=== PATIENT | female | born 2000 | race Caucasian/White ===

== ENCOUNTER 2024-07-26 12:25 | Emergency (ER) | payer SELFPAY ==
[~2024-07-26] VITALS: Ht 152.4 cm; Wt 72.5 kg
[2024-07-26] MEDS: ACETAMINOPHEN 650 mg PER 20.3 mL UD PO ONE (13:00)
[2024-07-26 14:16] VITALS: BP 122/74; PULSE 101; RESP 17; O2SAT 97
[2024-07-26] MEDS ORDERED: NAPR-957 PO (14:17)
[2024-07-26] MEDS ORDERED: PROM1SOL4 PO (14:17)
[2024-07-26] MEDS ORDERED: AUG875T PO (14:17)
[2024-07-26 14:18] VITALS: TEMP 99.8
--- NOTE | 2024-07-26 14:18 | ED.PDOC ---
Eye-HPI HPI Comments This is a pleasant 23-year-old female with no MHx that presents with a chief complaint of a sore throat, itchy scratchy sore throat, bilateral ear pain for the last three days. Not taking medications at this time No red flags Chief Complaint: Sore Throat Time Seen by MD: 13:31 Primary Care Provider: NONE Reviewed Notes: Nurses Notes, Medications, Allergies Allergies: Coded Allergies: NO KNOWN ALLERGIES (Unverified , 07/26/24) Home Meds Active Scripts Naproxen (Naproxen) 375 Mg Tab, 1 TAB PO BIDPC for 10 Days, #20 TAB 0 Refills Prov:MELANIE MEDEL MANAGER ED 07/26/24 Promethazine-Dm (Promethazine Dm 6.25-15 mg/5Ml) 1 Wen Wen, 5 ML PO TIDP PRN for 10 Days, #150 ML 0 Refills Prov:MELANIE MDEEL MANAGER ED 07/26/24 Amoxicillin & Pot Clavulanate (AUGMENTIN TABLET) 875 Mg Tb, 875 MG PO BID for 7 Days, #14 TAB 0 Refills Prov:MELANIE MEDEL MANAGER ED 07/26/24 Information Source: Patient Mode of Arrival: Ambulatory Past Medical History PAST MEDICAL HISTORY: Denies Surgical History: Denies all surgeries ENVIRONMENTAL REMEDIATION ENGINEER History: No Pertinent ENVIRONMENTAL REMEDIATION ENGINEER History Family History Family History: Reviewed,noncontributory to illness Social History Smoker: Non-Smoker Alcohol: Denies ETOH Use Drugs: Denies Drug Use All Other Systems: Reviewed and Negative (PER HPI) Physical Exam General Appearance: No Apparent Distress, Normal HEENT: Normal ENT Inspection, PERRL/EOMI, Pharyngeal Erythema (Bilateral tonsillar exudate), TMs Normal Neck: Full Range of Motion, Non-Tender, Normal, Normal Inspection Respiratory: Chest Non-Tender, Lungs Clear, No Accessory Muscle Use, No Respiratory Distress, Normal Breath Sounds Cardiovascular: No Edema, No JVD, No Murmur, No Gallop, Normal Peripheral Pulses, Regular Rate/Rhythm Breast Exam: Deferred Gastrointestinal: No Organomegaly, Non Tender, No Pulsatile Mass, Normal Bowel Sounds, Soft Genitalia: Deferred Pelvic: Deferred Rectal: Deferred Extremities: No calf tenderness, Normal capillary refill, Normal inspection, Normal range of motion, Non-tender, No pedal edema Musculoskeletal : Apperance: Normal Neurologic: Alert, knitted cloth examiner II-XII nml as Tested, No Motor Deficits, Normal Affect, Normal Mood, No Sensory Deficits Cerebellar Function: Normal Reflexes: Normal Skin: Dry, Normal Color, Warm Lymphatic: No Adenopathy Was a procedure done? Was a procedure done?: No EENT DIFF Eye: Other Sore Throat: Streptococcal, Viral Pharyngitis, URI X-Ray, Labs, Meds, VS Vital Signs Date Time Temp Pulse Resp B/P (MAP) Pulse Ox O2 Delivery O2 Flow Rate FiO2 07/26/24 14:18 99.8 07/26/24 14:16 99.8 101 16 122/74 (90) 97 99.8 07/26/24 14:16 101 17 97 Room Air 07/26/24 13:00 101.4 07/26/24 12:33 101.1 106 16 118/77 (91) 97 101.1 Current Medications Medications (Trade) Dose Ordered Sig/Robert Route Start Time Stop Time Status Last Admin Acetaminophen (Tylenol Solution Oral) 650 mg ONCE ONCE PO 07/26/24 13:00 07/26/24 13:01 DC 07/26/24 13:00 Dexamethasone Sodium Phosphate (Decadron Injection) 10 mg ONCE ONCE PO 07/26/24 14:30 07/26/24 14:31 DC 07/26/24 14:31 X-Ray, Labs, Meds, VS Comment Exam/test findings consistent with strep throat infection. Prescribed p.o. antibiotics for presentation of symptoms Complete course of antibiotic therapy even if symptoms improve or resolve. There should be no leftover antibiotics as this can lead to antibiotic resistant bacteria and even worse infection. Patient verbalized understanding. Potential side effects discussed with patient including abdominal pain, nausea, diarrhea. Encouraged fluid intake Acetaminophen to reduce pain/fever NSAIDs to reduce pain/fever Nonpharmacological recommendations given Warm salt water gargles Throat lozenges Humidified air Also advised to replace toothbrush after 3 days of antibiotic use, return to school after 24 hours of treatment (no longer contagious). Return precautions given Worsening pain Fevers past 48 hours after antibiotics Any neck pain, headache, vision issues, or other concerns Additional MDM Review of External, Non-ED records: External records reviewed. Discussion with independent historian (EMS, family) history obtained from the patient at bedside Chronic conditions affecting care: none Social determinants of health affecting care: none Consideration of admission (observation or admission): I considered escalation of care to admission for this patient, however given the reassuring workup, the patient is safe for outpatient management. Time of 1ST Reevaluation: 14:15 Reevaluation 1ST: Improved Patient Education/Counseling: Diagnosis, Treatment Family Education/Counseling: Diagnosis, Treatment Departure 1 Departure Time of Disposition: 14:15 Impression: Primary Impression: Tonsillar exudate Disposition: HOME / SELF CARE / HOMELESS Condition: Stable e-Prescriptions Naproxen (Naproxen) 375 Mg Tab 1 TAB PO BIDPC for 10 Days, #20 TAB 0 Refills Prov: MELANIE MEDEL NP 07/26/24 Promethazine-Dm (Promethazine Dm 6.25-15 mg/5Ml) 1 Wen Wen 5 ML PO TIDP PRN for 10 Days, #150 ML 0 Refills Prov: MELANIE MEDEL NP 07/26/24 Amoxicillin & Pot Clavulanate (AUGMENTIN TABLET) 875 Mg Tb 875 MG PO BID for 7 Days, #14 TAB 0 Refills Prov: MELANIE MEDEL NP 07/26/24 Critical Care Note Critical Care Time?: No Stability Stability form required: No Heart Score Heart Score: Heart Score Response (Comments) Value History N/A 0 EKG N/A 0 Age N/A 0 Risk Factors N/A 0 Troponin N/A 0 Total 0 MELANIE MEDEL NP July 26, 2024 14:17
[2024-07-26] MEDS: DexAMETHasone SOD PHOS 10MG/1ML VIAL INJ PO ONE (14:31)
== END 2024-07-26 14:33 | disposition home or self-care (01) ==
LOC: ER 12:32
DX: J03.90 Acute tonsillitis, unspecified (principal)
CPT/HCPCS: 99283; J1100